=== PATIENT | male | born 1950 | race Caucasian/White ===

== ENCOUNTER 2020-11-19 14:31 | Emergency (ER) | payer OTHER ==
[~2020-11-19] VITALS: Ht 175.3 cm; Wt 114.5 kg
--- NOTE | 2020-11-19 15:15 | NUR ---
PT COMPLAING OF SHORTNESS OF BREATH AND CHEST TIGHTNESS THAT STARTED LAST NIGHT. PT ALSO DRY MOUTH, HEADACHE AND FATIGUE. 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
[2020-11-19] MEDS ORDERED: ACETAMINOPHEN 500 MG TABLET ONE (15:26)
[2020-11-19] MEDS ORDERED: ACETAMINOPHEN 325 MG TABLET PO ONE (15:30)
[2020-11-19 15:33] LABS: BASOPHILS % (AUTO) 0 % (0-1); EOSINOPHILS % (AUTO) 0 % (1-7); LYMPHOCYTES % (AUTO) 7 % (22-44); MEAN CORPUSCULAR HEMOGLOBIN 32.4 pg (27.5-34.5); MEAN CORPUSCULAR HGB CONC 34.4 g/dL (33.2-36.2); MEAN PLATELET VOLUME 7.5 fL (7.4-10.4); MONOCYTES % (AUTO) 7 % (2-9); NEUTROPHILS % (AUTO) 86 % (42-75); PLATELET COUNT 231 x10^3/uL (130-400); RED BLOOD COUNT 4.64 x10^6/uL (4.38-5.82); RED CELL DISTRIBUTION WIDTH 12.4 % (9.4-14.8)
[2020-11-19 15:39] LABS: ALBUMIN 3.7 g/dL (3.4-5.0); ANION GAP 6 mmol/L (5-15); CALCIUM 8.9 mg/dL (8.5-10.1); CHLORIDE 103 mmol/L (98-107)
[2020-11-19 15:43] LABS: TROPONIN I < 0.015 ng/mL (0.000-0.045)
[2020-11-19 16:11] LABS: MD SCAN
[2020-11-19 17:00] LABS: MICROSCOPIC INDICATED
[2020-11-19] MEDS ORDERED: CEFTRIAXONE PMX 1GM/50ML 50 ML IV ONE (17:30)
--- NOTE | 2020-11-19 18:15 | NUR ---
Pt calm in bed, Nad. All questions answered. pt up for recheck
[2020-11-19 18:55] VITALS: BP 127/54
== END 2020-11-19 18:57 | disposition home or self-care (01) ==
LOC: ED 18:45
DX: R06.00 Dyspnea, unspecified (principal); R07.89 Other chest pain; N39.0 Urinary tract infection, site not specified; D72.829 Elevated white blood cell count, unspecified; Z20.822 Contact with and (suspected) exposure to COVID-19; R94.31 Abnormal electrocardiogram [ECG] [EKG]
CPT/HCPCS: 36415; 71045; 80048; 81001; 82040; 83605; 83880; 84484; 85025; 85379; 87040; 87077; 87086; 87186; 93005; 96374; 99284; J0696; U0003